=== PATIENT | female | born 1995 | race Caucasian/White ===

== ENCOUNTER 2018-08-03 05:50 | Day surgery (SDC) | payer OTHER ==
[~2018-08-03] VITALS: Ht 162.6 cm; Wt 68.0 kg
[2018-08-03 06:35] LABS: HCG,QUAL RESULT NEGATIVE (NEGATIVE)
[2018-08-03] MEDS ORDERED: BACITRACIN ZINC 15 GM TOPICAL OINTMENT TP ONE (09:50)
[2018-08-03] MEDS ORDERED: DEXAMETHASONE SOD PHOSPHATE 4 MG/ML VIAL IVP ONE (09:50)
[2018-08-03] MEDS ORDERED: NS 250 ML IV.SOLN IV ONE (09:50)
[2018-08-03] MEDS ORDERED: MUPIROCIN 2% TOPICAL OINTMENT 22 GM TP ONE (09:50)
[2018-08-03] MEDS ORDERED: SEVOFLURANE 15 MIN GAS INH ONE (09:50)
[2018-08-03] MEDS ORDERED: EPINEPHrine 1 MG/ML AMP IV ONE (09:50)
[2018-08-03] MEDS ORDERED: OXYMETAZOLINE HCL 0.05% NASAL SPRAY NS ONE (09:50)
[2018-08-03] MEDS ORDERED: PROPOFOL 200MG/ 20ML VIAL (DIPRIVAN) IV ONE (09:50)
[2018-08-03] MEDS ORDERED: WATER FOR IRRIGATION,STERILE 1,000 ML IRRIG.SOLN IR ONE (09:50)
[2018-08-03] MEDS ORDERED: fentaNYL CITRATE 250 MCG/5 ML AMP IV ONE (09:50)
[2018-08-03] MEDS ORDERED: ROCURONIUM BROMIDE 10 MG/ML (ZEMURON) IV ONE (09:50)
[2018-08-03] MEDS ORDERED: NS IRRIG SOLN 1000 ML IR ONE (09:50)
[2018-08-03] MEDS ORDERED: MIDAZOLAM HCL 5 MG/5 ML VIAL IVP ONE (09:50)
[2018-08-03] MEDS ORDERED: LR 1,000 ML IV.SOLN IV ONE (09:50)
[2018-08-03] MEDS ORDERED: ONDANSETRON HCL 4 MG/2 ML VIAL IVP ONE (09:50)
[2018-08-03] MEDS ORDERED: KETOROLAC TROMETHAMINE 30 MG VIAL IVP ONE (09:50)
[2018-08-03] MEDS ORDERED: LIDOCAINE/EPI 1% 1:100000 20 ML VIAL INJ ONE (09:50)
[2018-08-03] MEDS ORDERED: LR 1,000 ML IV SCH (11:52)
[2018-08-03] MEDS ORDERED: MORPHINE 4 MG/ML INJ. SYRINGE IVP PRN ×3 (12:00)
[2018-08-03] MEDS ORDERED: ONDANSETRON HCL 4 MG/2 ML VIAL IVP PRN (12:00)
[2018-08-03 13:24] VITALS: BP_SYST 120
[2018-08-03] MEDS ORDERED: ACETAMINOPHEN 500 MG TABLET PO ONE (13:30)
[2018-08-03] MEDS ORDERED: ACETAMINOPHEN 500 MG TABLET ONE (13:31)
== END 2018-08-03 14:40 | disposition home or self-care (01) ==
LOC: SMU 05:50 → SDS 05:50
PROVIDERS: ATTEND Otolaryngology
DX: J34.2 Deviated nasal septum (principal); J32.9 Chronic sinusitis, unspecified; J34.89 Other specified disorders of nose and nasal sinuses; J35.2 Hypertrophy of adenoids; J45.909 Unspecified asthma, uncomplicated; Z79.899 Other long term (current) drug therapy; Z98.890 Other specified postprocedural states; K21.9 Gastro-esophageal reflux disease without esophagitis
CPT/HCPCS: 30520; 31253; 31256; 36415; 42831; 84703 ×2; 87070; 87075; 87101; 87186; 88304; 88305; 88311; J7120; C1726; J0171; J1100; J1885; J2250; J2405; J2704; J3010; J7050